=== PATIENT | female | born 1940 | race Caucasian/White ===

== ENCOUNTER 2017-01-11 11:37 | Inpatient (IN) | payer MEDICARE ==
[2017-01-11] MEDS ORDERED: PROVENTIL INHALER 6.7 G (200 INHALATIONS) INH PRN (13:45)
[2017-01-11] MEDS ORDERED: Mometasone/Formoterol 60 PUFF AER INH PRN (14:00)
[2017-01-11] MEDS ORDERED: HYDROcodone/Acetaminophen 10/325 mg Tablet PO PRN ×2 (14:03→17:59)
[2017-01-11] MEDS: HYDROcodone/Acetaminophen 10/325 mg Tablet PO PRN (18:22)
[2017-01-11] MEDS: oxyCODONE ER 10 MG TAB PO SCH (20:36)
[2017-01-12] MEDS: HYDROcodone/Acetaminophen 10/325 mg Tablet PO PRN ×3 (05:21→21:54)
[2017-01-12] MEDS: Levothyroxine Sodium 88 MCG TAB PO SCH (06:26)
[2017-01-12] MEDS: oxyCODONE ER 10 MG TAB PO SCH ×2 (08:19→20:37)
[2017-01-12] MEDS: Aspirin 325 MG TAB PO SCH (08:19)
[2017-01-12] MEDS ORDERED: AMPHETAMINE PO SCH (09:00)
[2017-01-12] MEDS ORDERED: DEXTROAMPHETAMINE PO SCH (09:00)
[2017-01-13] MEDS: Levothyroxine Sodium 88 MCG TAB PO SCH (05:09)
[2017-01-13] MEDS: HYDROcodone/Acetaminophen 10/325 mg Tablet PO PRN ×3 (05:43→19:45)
[2017-01-13] MEDS: oxyCODONE ER 10 MG TAB PO SCH ×2 (08:45→21:31)
[2017-01-13] MEDS: Aspirin 325 MG TAB PO SCH (08:47)
[2017-01-14] MEDS: Levothyroxine Sodium 88 MCG TAB PO SCH (05:30)
[2017-01-14] MEDS: HYDROcodone/Acetaminophen 10/325 mg Tablet PO PRN ×2 (05:42→15:52)
[2017-01-14] MEDS: oxyCODONE ER 10 MG TAB PO SCH ×2 (08:49→20:14)
[2017-01-14] MEDS: Aspirin 325 MG TAB PO SCH (08:51)
[2017-01-14 11:33] VITALS: BMI 20.5
[2017-01-14] MEDS: DEXTROAMPHETAMINE PO SCH (19:20)
[2017-01-14] MEDS: AMPHETAMINE PO SCH (19:20)
[2017-01-15] MEDS: Levothyroxine Sodium 50 MCG TAB PO SCH (05:50)
[2017-01-15] MEDS: HYDROcodone/Acetaminophen 10/325 mg Tablet PO PRN ×3 (05:50→21:39)
[2017-01-15] MEDS: Aspirin 325 MG TAB PO SCH (08:36)
[2017-01-15] MEDS: oxyCODONE ER 10 MG TAB PO SCH ×2 (08:36→20:47)
[2017-01-16] MEDS: HYDROcodone/Acetaminophen 10/325 mg Tablet PO PRN ×3 (04:10→17:28)
[2017-01-16] MEDS: Levothyroxine Sodium 50 MCG TAB PO SCH (06:13)
[2017-01-16] MEDS: oxyCODONE ER 10 MG TAB PO SCH ×2 (08:52→20:54)
[2017-01-16] MEDS: Aspirin 325 MG TAB PO SCH (08:54)
[2017-01-17] MEDS: HYDROcodone/Acetaminophen 10/325 mg Tablet PO PRN ×3 (04:41→17:33)
[2017-01-17] MEDS: Levothyroxine Sodium 50 MCG TAB PO SCH (05:25)
[2017-01-17] MEDS: Aspirin 325 MG TAB PO SCH (08:34)
[2017-01-17] MEDS: oxyCODONE ER 10 MG TAB PO SCH ×2 (08:35→20:30)
[2017-01-17 19:21] VITALS: TEMP 98.3
[2017-01-18] MEDS: HYDROcodone/Acetaminophen 10/325 mg Tablet PO PRN ×2 (04:46→11:36)
[2017-01-18] MEDS: Levothyroxine Sodium 50 MCG TAB PO SCH (05:04)
[2017-01-18 06:25] VITALS: BP 120/87
[2017-01-18] MEDS: Aspirin 325 MG TAB PO SCH (08:53)
[2017-01-18] MEDS: oxyCODONE ER 10 MG TAB PO SCH (08:54)
== END 2017-01-18 14:15 | disposition home health service (06) | DRG 560 ==
LOC: BURMED 12:25
PROVIDERS: ADMIT Family Medicine; ATTEND Family Medicine
DX: Z47.1 Aftercare following joint replacement surgery (principal); K51.90 Ulcerative colitis, unspecified, without complications; M06.9 Rheumatoid arthritis, unspecified; Z96.651 Presence of right artificial knee joint; G89.4 Chronic pain syndrome; G47.00 Insomnia, unspecified; R53.82 Chronic fatigue, unspecified; Z88.1 Allergy status to other antibiotic agents; Z88.2 Allergy status to sulfonamides; Z88.8 Allergy status to other drugs, medicaments and biological substances
CPT/HCPCS: G8978-GP-CK; G8979-GP-CI; G8987-GO-CI; G8988-GO-CI

== ENCOUNTER 2024-02-27 06:54 | Inpatient (IN) | payer MEDICARE ==
[2024-02-27 07:30] LABS: #Basophils 0.1 thou/uL (0.0-0.2); #Eosinphils 0.1 thou/uL (0.0-0.7); #Lymphocytes 2.3 thou/uL (1.20-3.40); #Neutrophils 9.3 thou/uL (1.40-6.50); %Basophils 0.9 % (0.0-1.0); %Eosinophils 0.8 % (0.0-10.0); %Lymphocytes 16.4 % (21.0-51.0); %Monocytes 14.3 % (0.0-10.0); %Neutrophils 67.6 % (42.0-75.0); Hematocrit 35.4 % (36.0-47.0); Hemoglobin 11.4 g/dL (12.0-16.0); Mean Corpuscular HGB CONC 32.1 g/dL (32.0-36.0); Mean Corpuscular Hemoglobin 28.5 pg (27.0-31.0); Mean Corpuscular Volume 88.8 fl (78.0-98.0); Mean Platelet Volume 9.1 fL (7.4-10.4); Platelet Count 204 10x3/uL (130-400); RBC Distribution Width 12.2 % (11.5-14.5); Red Blood Cell (RBC) Count 3.98 mill/uL (4.20-5.40); White Blood Cell (WBC) Count 13.7 10x3/uL (4.8-10.8)
[2024-02-27 07:44] LABS: Anion Gap 11 mmol/L (10-20); BUN (Urea Nitrogen) 19 mg/dL (9.8-20.1); Calc. Creatinine Clearance 0 mL/min (70-130); Calcium 8.7 mg/dL (7.8-10.44); Carbon Dioxide 30 mmol/L (23-31); Chloride 105 mmol/L (98-107); Estimated GFR 90; Glucose 75 mg/dL (83-110); Sodium 143 mmol/L (136-145)
[2024-02-27 07:47] LABS: Troponin I Less than 0.010 ng/mL (< 0.028)
[2024-02-27 09:35] LABS: Influenza A by NAA Not Detected (NotDetected); Influenza B by NAA Not Detected (NotDetected); SARS-CoV-2 NAA Rapid Test Not Detected (NotDetected)
[2024-02-27 11:57] VITALS: BMI 25.7
[2024-02-27] MEDS: Ipratropium/Albuterol 3 ML NEB ONE (13:08)
[2024-02-27] MEDS: Potassium Chloride 20 MEQ TAB ONE (13:08)
[2024-02-27] MEDS ORDERED: Albuterol 2.5 MG (3 mL) NEB NEB PRN (13:19)
[2024-02-27] MEDS: Ipratropium/Albuterol 3 ML NEB NEB SCH ×2 (14:26→19:26)
[2024-02-27] MEDS ORDERED: Senokot S 8.6-50 MG TAB PO PRN (16:43)
[2024-02-27] MEDS: HYDROcodone/Acetaminophen 10/325 mg Tablet PO PRN (17:05)
[2024-02-27] MEDS: cefTRIAXone\\ROCEPHIN 1 GM in Sodium Chloride 0.9% 100 ML IVPB SCH (19:25)
[2024-02-27] MEDS: Mesalamine 1.2 GM Tablet PO SCH (21:25)
[2024-02-27] MEDS: QUEtiapine 100 MG TAB PO SCH (21:25)
[2024-02-27] MEDS: guaiFENesin ER 600 MG TAB PO SCH (21:25)
[2024-02-27] MEDS: MESALAMINE 1000 MG PR SCH (21:25)
[2024-02-28] MEDS: Levothyroxine Sodium 50 MCG TAB PO SCH (05:20)
[2024-02-28 05:22] LABS: #Basophils 0.1 thou/uL (0.0-0.2); #Lymphocytes 0.7 thou/uL (1.20-3.40); #Monocytes 0.9 thou/uL (0.11-0.59); #Neutrophils 10.9 thou/uL (1.40-6.50); %Basophils 0.9 % (0.0-1.0); %Lymphocytes 5.8 % (21.0-51.0); %Monocytes 6.8 % (0.0-10.0); %Neutrophils 86.5 % (42.0-75.0); Hematocrit 34.7 % (36.0-47.0); Hemoglobin 11.2 g/dL (12.0-16.0); Mean Corpuscular HGB CONC 32.4 g/dL (32.0-36.0); Mean Corpuscular Hemoglobin 28.9 pg (27.0-31.0); Mean Corpuscular Volume 89.4 fl (78.0-98.0); Mean Platelet Volume 8.9 fL (7.4-10.4); Platelet Count 195 10x3/uL (130-400); RBC Distribution Width 12.4 % (11.5-14.5); Red Blood Cell (RBC) Count 3.88 mill/uL (4.20-5.40); White Blood Cell (WBC) Count 12.5 10x3/uL (4.8-10.8)
[2024-02-28 05:32] LABS: ALT (SGPT) 10 U/L (8-55); AST (SGOT) 8 U/L (5-34); Albumin 2.8 g/dL (3.4-4.8); Alkaline Phosphatase 78 U/L (40-110); Anion Gap 11 mmol/L (10-20); BUN (Urea Nitrogen) 15 mg/dL (9.8-20.1); Bilirubin, Total 0.2 mg/dL (0.2-1.2); Calc. Creatinine Clearance 82 mL/min (70-130); Calcium 8.6 mg/dL (7.8-10.44); Carbon Dioxide 27 mmol/L (23-31); Chloride 107 mmol/L (98-107); Estimated GFR 91; Globulin 2.8 g/dL (2.4-3.5); Glucose 152 mg/dL (83-110); Potassium 4.2 mmol/L (3.5-5.1); Protein, Total 5.6 g/dL (5.8-8.1); Sodium 141 mmol/L (136-145)
[2024-02-28] MEDS: Pantoprazole DR 40 MG TAB PO SCH (09:48)
[2024-02-28] MEDS: Saccharomyces boulardii 250 MG CAP PO SCH (09:48)
[2024-02-28] MEDS: Azithromycin 250 MG TAB PO SCH (09:48)
[2024-02-28] MEDS: Aspirin 81 mg Enteric Coated Tablet PO SCH (09:49)
[2024-02-28] MEDS: Benzonatate 100 MG CAP PO PRN (20:00)
[2024-02-29] MEDS: GUAIFENESIN SF SOLN 200 MG/10 ML UDCUP PO PRN (15:21)
[2024-03-01] MEDS: Acetaminophen 325 MG TAB PO PRN (02:57)
[2024-03-01 07:44] VITALS: BP 138/66; TEMP 98.1
[2024-03-01] MEDS ORDERED: ALPRAZolam 0.5 MG TAB PO PRN (13:47)
== END 2024-03-01 15:23 | disposition swing bed (61) | DRG 195 ==
LOC: BURERS 06:54 → BURMED 09:10 → OBSVTOIN 09:10
PROVIDERS: ADMIT Family Medicine; ATTEND Family Medicine
DX: J18.9 Pneumonia, unspecified organism (principal); J06.9 Acute upper respiratory infection, unspecified; E03.9 Hypothyroidism, unspecified; M06.9 Rheumatoid arthritis, unspecified; Z98.890 Other specified postprocedural states; Z90.710 Acquired absence of both cervix and uterus; Z87.891 Personal history of nicotine dependence; Z88.2 Allergy status to sulfonamides
CPT/HCPCS: 36415; 71046; 80048; 80053; 84484; 85025; 93005; 94640; J0696; J3490; J7620

== ENCOUNTER 2024-03-01 12:56 | Inpatient (IN) | payer MEDICARE ==
[2024-03-01] MEDS ORDERED: Senokot S 8.6-50 MG TAB PO PRN (16:13)
[2024-03-01] MEDS ORDERED: Albuterol 2.5 MG (3 mL) NEB NEB PRN (16:13)
[2024-03-01] MEDS ORDERED: Promethazine HCl 6.25 MG/5 ML Syrup PO PRN (16:20)
[2024-03-01] MEDS ORDERED: Acetaminophen 325 MG TAB PO PRN (16:21)
[2024-03-01] MEDS ORDERED: ALPRAZolam 0.5 MG TAB PO PRN (17:00)
[2024-03-01] MEDS: cefTRIAXone\\ROCEPHIN 1 GM in Sodium Chloride 0.9% 100 ML IVPB SCH (17:16)
[2024-03-01] MEDS ORDERED: Guaifenesin DM 100-10/5 ML UDCUP PO PRN (17:31)
[2024-03-01] MEDS: ALPRAZolam 0.5 MG TAB PO PRN (17:51)
[2024-03-01 17:54] VITALS: BMI 25.7
[2024-03-01] MEDS: Ipratropium/Albuterol 3 ML NEB NEB SCH (18:33)
[2024-03-01] MEDS: cefTRIAXone (ROCEPHIN) 1 GM VIAL IVPB SCH (18:45)
[2024-03-01] MEDS: HYDROcodone/Acetaminophen 10/325 mg Tablet PO PRN (21:26)
[2024-03-01] MEDS: QUEtiapine 100 MG TAB PO SCH (21:26)
[2024-03-01] MEDS: MESALAMINE 1.2 GM PO SCH (21:28)
[2024-03-01] MEDS: MESALAMINE 1000MG SUPPOSITORY PR SCH (21:29)
[2024-03-01] MEDS: Benzonatate 100 MG CAP PO PRN (21:33)
[2024-03-02] MEDS: Acetaminophen 325 MG TAB PO PRN (03:10)
[2024-03-02 06:06] LABS: #Eosinphils 0.5 thou/uL (0.0-0.7); #Lymphocytes 1.8 thou/uL (1.20-3.40); #Monocytes 0.8 thou/uL (0.11-0.59); #Neutrophils 5.7 thou/uL (1.40-6.50); %Basophils 0.5 % (0.0-1.0); %Eosinophils 5.9 % (0.0-10.0); %Lymphocytes 20.7 % (21.0-51.0); %Monocytes 9.2 % (0.0-10.0); %Neutrophils 63.7 % (42.0-75.0); Hematocrit 32.1 % (36.0-47.0); Hemoglobin 10.4 g/dL (12.0-16.0); Mean Corpuscular HGB CONC 32.4 g/dL (32.0-36.0); Mean Corpuscular Hemoglobin 28.8 pg (27.0-31.0); Mean Corpuscular Volume 88.7 fl (78.0-98.0); Platelet Count 236 10x3/uL (130-400); RBC Distribution Width 12.6 % (11.5-14.5); Red Blood Cell (RBC) Count 3.62 mill/uL (4.20-5.40); White Blood Cell (WBC) Count 8.9 10x3/uL (4.8-10.8)
[2024-03-02] MEDS: Levothyroxine Sodium 50 MCG TAB PO SCH (06:08)
[2024-03-02 06:27] LABS: ALT (SGPT) 11 U/L (8-55); AST (SGOT) 9 U/L (5-34); Albumin 2.7 g/dL (3.4-4.8); Alkaline Phosphatase 88 U/L (40-110); Anion Gap 12 mmol/L (10-20); BUN (Urea Nitrogen) 15 mg/dL (9.8-20.1); Bilirubin, Total 0.2 mg/dL (0.2-1.2); Calc. Creatinine Clearance 88 mL/min (70-130); Calcium 8.6 mg/dL (7.8-10.44); Carbon Dioxide 33 mmol/L (23-31); Chloride 101 mmol/L (98-107); Estimated GFR 92; Globulin 2.8 g/dL (2.4-3.5); Glucose 112 mg/dL (83-110); Potassium 3.6 mmol/L (3.5-5.1); Protein, Total 5.5 g/dL (5.8-8.1); Sodium 142 mmol/L (136-145)
[2024-03-02] MEDS: predniSONE 20 MG TAB PO SCH (08:33)
[2024-03-02] MEDS: Azithromycin 250 MG TAB PO SCH (08:33)
[2024-03-02] MEDS: Aspirin 81 mg Enteric Coated Tablet PO SCH (08:33)
[2024-03-02] MEDS: Saccharomyces boulardii 250 MG CAP PO SCH (08:33)
[2024-03-02] MEDS: Dextroamphetamine/Amphetamine [Adderall 20 Mg Tablet] PO SCH (08:34)
[2024-03-02] MEDS: Pantoprazole DR 40 MG TAB PO SCH (08:34)
[2024-03-02] MEDS ORDERED: Pantoprazole DR 40 MG TAB PO SCH (09:00)
[2024-03-02] MEDS: MESALAMINE 1000MG SUPPOSITORY PR SCH (20:24)
[2024-03-03] MEDS: Promethazine 25 MG TAB PO PRN (01:51)
[2024-03-03 09:06] VITALS: BMI 25.7
[2024-03-03 09:58] LABS: Troponin I Less than 0.010 ng/mL (< 0.028)
[2024-03-04] MEDS: Fluconazole 100 MG TAB PO SCH (17:31)
[2024-03-04] MEDS: Mesalamine 1000 MG Suppository PR SCH (20:55)
[2024-03-06 13:22] VITALS: BP 165/78; TEMP 98.8
== END 2024-03-06 13:45 | disposition home or self-care (01) | DRG 195 ==
LOC: BURMED 15:23
PROVIDERS: ADMIT Family Medicine; ATTEND Family Medicine
DX: J18.9 Pneumonia, unspecified organism (principal); R53.81 Other malaise; E03.9 Hypothyroidism, unspecified; F41.9 Anxiety disorder, unspecified; M06.9 Rheumatoid arthritis, unspecified; J43.9 Emphysema, unspecified; R00.0 Tachycardia, unspecified; Z90.710 Acquired absence of both cervix and uterus; Z98.890 Other specified postprocedural states; Z87.891 Personal history of nicotine dependence; Z79.82 Long term (current) use of aspirin; Z79.899 Other long term (current) drug therapy; Z88.2 Allergy status to sulfonamides; Z88.1 Allergy status to other antibiotic agents
CPT/HCPCS: 36415; 71046; 80053; 84484; 85025; 94640; J0696; J3490; J7512; J7620; Q0169

== ENCOUNTER 2025-07-31 13:46 | Emergency (ER) | payer MEDICARE ==
[2025-07-31] MEDS ORDERED: Nitroglycerin 0.4 MG TAB 1 EACH ONE (13:55)
[2025-07-31] MEDS ORDERED: Furosemide 40 MG (4 mL) VIAL ONE (14:15)
[2025-07-31 14:16] LABS: #Basophils 0.2 thou/uL (0.0-0.2); #Eosinophils 0.0 thou/uL (0.0-0.7); #Lymphocytes 1.1 thou/uL (1.20-3.40); #Monocytes 1.3 thou/uL (0.11-0.59); #Neutrophils 11.4 thou/uL (1.40-6.50); %Basophils 1.6 % (0.0-1.0); %Eosinophils 0.0 % (0.0-10.0); %Lymphocytes 7.9 % (21.0-51.0); %Monocytes 9.0 % (0.0-10.0); %Neutrophils 81.6 % (42.0-75.0); Hematocrit 37.4 % (36.0-47.0); Hemoglobin 12.7 g/dL (12.0-16.0); Mean Corpuscular Hemoglobin 30.0 pg (27.0-31.0); Mean Corpuscular Volume 88.3 fl (78.0-98.0); Platelet Count 160 10x3/uL (130-400); Red Blood Cell (RBC) Count 4.23 mill/uL (4.20-5.40); White Blood Cell (WBC) Count 14.0 10x3/uL (4.8-10.8)
[2025-07-31 14:18] LABS: Bicarbonate (HCO3v) 26.7 mmol/L (22.0-28.0); CO2 Tension (PvCO2) 37.1 mmHg (42.0-51.0); Calcium, Ionized 1.13 mmol/L (1.15-1.33); Chloride 98 mmol/L (98-107); Hemoglobin - Calc 13.1 g/dL (12.0-16.0); Potassium 3.5 mmol/L (3.5-5.1); Sodium 137 mmol/L (138-145); T. Carbon Dioxide 27.8 mmol/L (22.0-28.0); vO2 Saturation-calc 86.5 % (60.0-85.0)
[2025-07-31] MEDS ORDERED: Azithromycin 500 MG VIAL ONE (14:23)
[2025-07-31] MEDS ORDERED: cefTRIAXone (ROCEPHIN) 2 GM VIAL ONE (14:24)
[2025-07-31 14:30] LABS: ALT (SGPT) 19 U/L (Less than 34); AST (SGOT) 39 U/L (11-34); Albumin 3.3 g/dL (3.1-4.5); Alkaline Phosphatase 63 U/L (40-110); Anion Gap 19 mmol/L (10-20); BUN (Urea Nitrogen) 19 mg/dL (9.8-20.1); Bilirubin, Total 1.3 mg/dL (0.3-1.2); Calc. Creatinine Clearance 0 mL/min (70-130); Calcium 8.6 mg/dL (7.8-10.44); Carbon Dioxide 21 mmol/L (23-31); Chloride 101 mmol/L (98-107); Globulin 2.9 g/dL (2.4-3.5); Glucose 91 mg/dL (83-110); Potassium 3.6 mmol/L (3.5-5.1); Sodium 137 mmol/L (136-145)
[2025-07-31 14:35] LABS: Troponin I 0.263 ng/mL (< 0.028)
[2025-07-31] MEDS ORDERED: Ketamine 50 MG/ML (10ML VIAL) ONE (14:47)
[2025-07-31 14:54] LABS: Glucose, Urine (Dipstick) Negative (Negative); Leukocyte Negative (Negative); Protein, Urine (Dipstick) Negative (Neg-Trace); Specific Gravity, Urine 1.015 (1.005-1.030)
[2025-07-31] MEDS ORDERED: Aspirin Chewable 81 MG TAB ONE (14:59)
[2025-07-31 15:02] LABS: Bacteria/HPF None Seen HPF (None Seen); CAUTI Indications for Culture Fever or rigors; RBC/HPF None Seen HPF (0-3); WBC/HPF None Seen HPF (0-3)
[2025-07-31 15:03] LABS: Urine Culture Reflex No No
== END 2025-07-31 15:05 | disposition short-term general hospital (02) ==
LOC: BURERS 13:46
DX: J18.9 Pneumonia, unspecified organism (principal); I51.3 Intracardiac thrombosis, not elsewhere classified; R09.02 Hypoxemia; K21.9 Gastro-esophageal reflux disease without esophagitis; Z87.891 Personal history of nicotine dependence; Z79.899 Other long term (current) drug therapy; Z79.82 Long term (current) use of aspirin
CPT/HCPCS: 51702; 71045; 80053; 81001; 82330; 82803; 83605; 83880; 84484; 85025; 93005; 94660; 94760; 96365; 96368; 96375; J0456; J0696; J1940; J2919

== ENCOUNTER 2025-09-21 16:12 | Emergency (ER) | payer MEDICARE, OTHER ==
[2025-09-21 16:50] LABS: #Basophils 0.1 thou/uL (0.0-0.2); #Eosinophils 0.1 thou/uL (0.0-0.7); #Lymphocytes 2.2 thou/uL (1.20-3.40); #Monocytes 0.6 thou/uL (0.11-0.59); #Neutrophils 3.8 thou/uL (1.40-6.50); %Basophils 0.7 % (0.0-1.0); %Eosinophils 2.2 % (0.0-10.0); %Lymphocytes 32.5 % (21.0-51.0); %Monocytes 8.8 % (0.0-10.0); %Neutrophils 55.8 % (42.0-75.0); Hematocrit 47.0 % (36.0-47.0); Hemoglobin 14.6 g/dL (12.0-16.0); Mean Corpuscular Hemoglobin 29.2 pg (27.0-31.0); Mean Corpuscular Volume 93.9 fl (78.0-98.0); Platelet Count 196 10x3/uL (130-400); Red Blood Cell (RBC) Count 5.00 mill/uL (4.20-5.40); White Blood Cell (WBC) Count 6.7 10x3/uL (4.8-10.8)
[2025-09-21 17:06] LABS: ALT (SGPT) 17 U/L (Less than 34); AST (SGOT) 24 U/L (11-34); Albumin 3.5 g/dL (3.1-4.5); Alkaline Phosphatase 66 U/L (40-110); Anion Gap 20 mmol/L (10-20); BUN (Urea Nitrogen) 19 mg/dL (9.8-20.1); Bilirubin, Total 0.8 mg/dL (0.3-1.2); Calc. Creatinine Clearance 0 mL/min (70-130); Calcium 9.4 mg/dL (7.8-10.44); Carbon Dioxide 23 mmol/L (23-31); Chloride 102 mmol/L (98-107); Globulin 3.2 g/dL (2.4-3.5); Glucose 70 mg/dL (83-110); Potassium 3.6 mmol/L (3.5-5.1); Sodium 141 mmol/L (136-145)
== END 2025-09-21 18:34 | disposition home or self-care (01) ==
LOC: BURERS 16:12
DX: S09.90XA Unspecified injury of head, initial encounter (principal); I63.9 Cerebral infarction, unspecified; I11.0 Hypertensive heart disease with heart failure; I50.30 Unspecified diastolic (congestive) heart failure; Z79.82 Long term (current) use of aspirin; Z87.891 Personal history of nicotine dependence
CPT/HCPCS: 36415; 70450; 72125; 72170; 80053; 85025